=== PATIENT | male | born 2000 | race Caucasian/White ===

== ENCOUNTER 2020-01-25 20:06 | Emergency (ER) | payer BC ==
[~2020-01-25] VITALS: Ht 182.9 cm; Wt 86.4 kg
[2020-01-25 20:11] VITALS: BP 126/75
== END 2020-01-25 21:13 | disposition home or self-care (01) ==
LOC: ER 20:08
DX: S06.0X0A Concussion without loss of consciousness, initial encounter (principal); S00.81XA Abrasion of other part of head, initial encounter; R51 Headache; R11.0 Nausea; Z72.89 Other problems related to lifestyle; V89.2XXA Person injured in unspecified motor-vehicle accident, traffic, initial encounter; Y93.89 Activity, other specified; Y92.89 Other specified places as the place of occurrence of the external cause; Y99.8 Other external cause status
CPT/HCPCS: 99281